=== PATIENT | female | born 1980 ===

== ENCOUNTER 2021-09-04 05:51 | Day surgery (SDC) | payer OTHER ==
[~2021-09-04] VITALS: Ht 172.7 cm; Wt 93.9 kg
[~2021-09-04 05:51] MED LIST: SYNTHROID112 MCG PO
[2021-09-04] MEDS ORDERED: NEURONTIN300 MG PO (10:10)
[2021-09-04] MEDS ORDERED: COLACE100 MG PO (10:10)
[2021-09-04] MEDS ORDERED: PERCOCET 5-3251 EACH PO (10:10)
== END 2021-09-04 14:00 | disposition home or self-care (01) ==
LOC: CIR.AMB 05:51
PROVIDERS: ATTEND Surgery
DX: K64.1 Second degree hemorrhoids (principal); K62.89 Other specified diseases of anus and rectum; Z88.0 Allergy status to penicillin; Z20.822 Contact with and (suspected) exposure to COVID-19; E03.9 Hypothyroidism, unspecified; F32.A Depression, unspecified; K76.0 Fatty (change of) liver, not elsewhere classified